=== PATIENT | female | born 1990 | race Hispanic/Latino ===

== ENCOUNTER 2024-10-31 19:27 | Emergency (ER) | payer SELFPAY ==
[~2024-10-31] VITALS: Ht 152.4 cm; Wt 78.9 kg
[2024-10-31 19:28] VITALS: BP 125/75; PULSE 84; RESP 16; TEMP 97.2
--- NOTE | 2024-10-31 19:33 | NUR ---
UA CUP PROVIDED
--- NOTE | 2024-10-31 20:10 | ERN ---
General Chief Complaint: Wound Check Stated Complaint: OPEN WOUND Time Seen by MD: 19:28 Source: patient, family History of Present Illness Initial Comments Patient is a 35-year-old female coming in to be evaluated for right arm lesion. Per patient she had an abscess drained a couple of days ago at another hospital secondary to shooting up heroin. She states that she came in for further evaluation to make sure that the wound was healing well. No increased erythema no drainage noticed. Allergies: Coded Allergies: No Known Allergies (Unverified Allergy, Unknown, 10/31/24) Past Medical History Past Medical History: Asthma Past Surgical History: Female( History) LMP: Sep 12, 2024 ROS Dictation CONSTITUTIONAL: No chills, no fever, no weakness, no diaphoresis, no malaise. HEAD/FACE: No signs of trauma. EENT: No eye pain, no blurred vision, no tearing, no double vision, no ear pain, no ear discharge, no nose pain, no nasal congestion, no throat pain, no throat swelling, no mouth pain. RESPIRATORY: No cough, no orthopnea, no SOB, no stridor, no wheezing. CARDIOVASCULAR: No chest pain, no edema, no palpitations, no syncope. GASTROINTESTINAL/ABDOMINAL: No abdominal pain, no constipation, no diarrhea, no nausea, no vomiting. GENITOURINARY: No abnormal discharge, no dysuria, no frequent urination, no hematuria. No complaints of pain in the genitals. MUSCULOSKELETAL: No back pain, no gout, no joint pain, no joint swelling, no muscle pain, no muscle stiffness, no neck pain. INTEGUMENTARY: No change in color, no change in hair/nails, no dryness, no lesion, no lumps, rash. NEUROLOGICAL/PSYCH: No anxiety, not depressed, no emotional problem, no headache, no numbness, no pre-existing deficit, no history of seizures, no tr emors, no weakness. HEMATOLOGIC/LYMPHATIC: Not anemic, no history of blood clots, no apparent bleeding, no bruising, glands not swollen. All Systems Negative, Except as Noted. Physical Exam Physical Exam Dictation VITAL SIGNS: Reviewed. GENERAL APPEARANCE: Alert, oriented x3, no acute distress, obese. HEAD AND FACE: Non-traumatic. EYES: PERRL, pink conjunctivas, eyelid no trauma, anterior chamber clear. EARS: Pinnas intact and no signs of trauma or erythema. Ear canals clear and no discharge. TMs no erythema. NOSE: No discharge, no bleeding. OROPHARYNX: Mouth normal, teeth no caries, tongue pink. Pharynx clear, no erythema. Tonsils no exudates, no abscesses noted. Mucous membrane moist. NECK: Supple, non-tender, no thyromegaly, no masses, no JVD, no bruits. BREAST: Deferred. CHEST: No tenderness, no crepitus, no paradoxical movement, no retractions. LUNGS: Clear, well-ventilated, symmetric, no rales, no wheezing, no rhonchi, no stridor, good breath sounds bilaterally. HEART: Regular rate, regular rhythm, no murmur, no gallops. VASCULAR: No peripheral edema. ABDOMEN: Soft, positive bowel sounds, nondistended, no guarding, nontender, no rebound, no masses no hepatomegaly, no splenomegaly, no George's sign, no hernias. RECTAL: Deferred. GENITAL: Deferred. NEUROLOGICAL: Normal speech, gross motor function intact, gross sensory function intact. MUSCULOSKELETAL: Neck nontender, full range of motion, back nontender, full range of motion. EXTREMITIES: Nontender, full range of motion. SKIN: Color pink, dry, no turgor, no rash, right arm status post I and D no increased erythema per patient, no purulent drainage LYMPHATICS: Deferred. Results Laboratory and Microbiology Labs Reviewed?: Yes MDM MDM: Differential diagnosis: Wound evaluation, status post I and D, Patient is a 35-year-old female coming in to be evaluated for right arm wound. Per patient she had an abscess formed shortly after using heroin. She was seen at another hospital the abscess was drained and patient came in for further evaluation. There has been no color change which would signify worsening of the lesion per patient was actually getting clear. I advised her to continue taking antibiotics and to follow up with primary care physician as indicated in the past. ED Course Vital Signs Date Time Temp Pulse Resp B/P (MAP) Pulse Ox O2 Delivery O2 Flow Rate FiO2 10/31/24 19:28 97.2 84 16 125/75 99 Room Air DX & DISP Disposition: Discharge Departure Impression: Primary Impression: Encounter for evaluation of wound Condition: Stable Additional Instructions: FOLLOW-UP WITH PRIMARY CARE PROVIDER IN 1 TO 2 DAYS. TAKE MEDICATIONS DIRECT ED HERE IN THE EMERGENCY ROOM. OKAY TO CONTINUE HOME MEDICATIONS UNLESS OTHERWISE DISCUSSED DURING YOUR VISIT IN THE EMERGENCY ROOM TODAY. RETURN TO YOUR NEAREST EMERGENCY ROOM IF SYMPTOMS WORSEN OR IF THERE IS NO IMPROVEMENT. CALL 911 IF YOU NEED IMMEDIATE ASSISTANCE. TAKE TYLENOL [id number] NEEDED AND IF NO CONTRAINDICATIONS ARE PRESENT. INCREASE ORAL HYDRATION. A WOUND CULTURE OR URINE CULTURE WAS ORDERED HERE IN THE EMERGENCY ROOM DEPARTMENT PLEASE FOLLOW-UP WITH PRIMARY CARE PROVIDER AND ADVISE THEM TO GET REPEAT PORTS FROM OUR FACILITY. IF YOU HAD ANY BLANCA WRAP/SPLINTS THAT WERE APPLIED HERE, PLEASE DO NOT REMOVE THEM UNTIL YOU SEE YOUR PRIMARY CARE OR SPECIALTY. Referrals: Referrals: SELF,REFERRAL (PCP) MAAME PIÑA MD Time of Disposition: 20:09 CAS SANDOVAL MD Oct 31, 2024 20:10
--- NOTE | 2024-10-31 20:16 | NUR ---
LEFT WITHOUT DISCHARGE PAPERS
== END 2024-10-31 20:16 | disposition home or self-care (01) ==
LOC: EDH 19:27
DX: S41.101A Unspecified open wound of right upper arm, initial encounter (principal); J45.909 Unspecified asthma, uncomplicated; X58.XXXA Exposure to other specified factors, initial encounter; Y93.89 Activity, other specified; Y92.89 Other specified places as the place of occurrence of the external cause; Y99.8 Other external cause status
CPT/HCPCS: 99282

== ENCOUNTER 2025-03-26 15:33 | Emergency (ER) | payer BC ==
[~2025-03-26] VITALS: Ht 152.4 cm; Wt 72.6 kg
--- NOTE | 2025-03-26 16:51 | NUR ---
PT MOVED TO FAST TRACK ASSUMED CARE AT THIS TIME
--- NOTE | 2025-03-26 17:07 | HMCIMG ---
ULTRASOUND UPPER EXTREMITY SOFT TISSUE LIMITED LEFT INDICATION: Lateral left forearm COMPARISON: None TECHNIQUE: Multiplanar sonographic images of the lateral left forearm were obtained earlier in real-time using grayscale and color Doppler technique, and subsequently made available for review. FINDINGS/IMPRESSION: 3.4 x 0.8 x 4.1 cm aggregate of subcutaneous fat stranding and minimal vascularity, perhaps representing cellulitis, but no evidence for organized/drainable fluid collection.
--- NOTE | 2025-03-26 17:44 | ERN ---
General Chief Complaint: Abscess Stated Complaint: LEFT ARM BOIL Time Seen by MD: 15:41 Source: patient History of Present Illness Initial Comments This is a 34-year-old female coming in to be evaluated for left arm lesion. Patient states that she does has a history of repeated abscesses she states that she started noticing a lesion in her left arm two days ago in his progressively getting worse. No fever no chills. Allergies: Coded Allergies: No Known Allergies (Unverified Allergy, Unknown, 10/31/24) Past Medical History Past Medical History: Asthma Past Surgical History: ROS Dictation CONSTITUTIONAL: No chills, no fever, no weakness, no diaphoresis, no malaise. HEAD/FACE: No signs of trauma. EENT: No eye pain, no blurred vision, no tearing, no double vision, no ear pain, no ear discharge, no nose pain, no nasal congestion, no throat pain, no throat swelling, no mouth pain. RESPIRATORY: No cough, no orthopnea, no SOB, no stridor, no wheezing. CARDIOVASCULAR: No chest pain, no edema, no palpitations, no syncope. GASTROINTESTINAL/ABDOMINAL: No abdominal pain, no constipation, no diarrhea, no nausea, no vomiting. GENITOURINARY: No abnormal discharge, no dysuria, no frequent urination, no hematuria. No complaints of pain in the genitals. MUSCULOSKELETAL: No back pain, no gout, no joint pain, no joint swelling, no muscle pain, no muscle stiffness, no neck pain. INTEGUMENTARY: No change in color, no change in hair/nails, no dryness, lesion, no lumps, no rash. NEUROLOGICAL/PSYCH: No anxiety, not depressed, no emotional problem, no headache, no numbness, no pre-existing deficit, no history of seizures, no tremors, no weakness. HEMATOLOGIC/LYMPHATIC: Not anemic, no history of blood clots, no apparent bleeding, no bruising, glands not swollen. All Systems Negative, Except as Noted. Physical Exam Physical Exam Dictation VITAL SIGNS: Reviewed. GENERAL APPEARANCE: Alert, oriented x3, no acute distress, obese. HEAD AND FACE: Non-traumatic. EYES: PERRL, pink conjunctivas, eyelid no trauma, anterior chamber clear. EARS: Pinnas intact and no signs of trauma or erythema. Ear canals clear and no discharge. TMs no erythema. NOSE: No discharge, no bleeding. OROPHARYNX: Mouth normal, teeth no caries, tongue pink. Pharynx clear, no erythema. Tonsils no exudates, no abscesses noted. Mucous membrane moist. NECK: Supple, non-tender, no thyromegaly, no masses, no JVD, no bruits. BREAST: Deferred. CHEST: No tenderness, no crepitus, no paradoxical movement, no retractions. LUNGS: Clear, well-ventilated, symmetric, no rales, no wheezing, no rhonchi, no stridor, good breath sounds bilaterally. HEART: Regular rate, regular rhythm, no murmur, no gallops. VASCULAR: No peripheral edema. ABDOMEN: Soft, positive bowel sounds, nondistended, no guarding, nontender, no rebound, no masses no hepatomegaly, no splenomegaly, no George's sign, no hernias. RECTAL: Deferred. GENITAL: Deferred. NEUROLOGICAL: Normal speech, gross motor function intact, gross sensory function intact. MUSCULOSKELETAL: Neck nontender, full range of motion, back nontender, full range of motion. EXTREMITIES: Nontender, full range of motion. SKIN: Color pink, dry, no turgor, no rash, no lacerations, left hand forearm erythema rash LYMPHATICS: Deferred. Results Laboratory and Microbiology Labs Reviewed?: Yes EKG/XRAY/US/CT/MRI Ultrasound Comment [place] [address] [address] IMAGING REPORT Signed PATIENT: MELLISA CHAO MR#: [id number] : 1990 SEX: F AGE: 34 LOCATION: [facility] ORDER 36 STATUS: REG REPORT#: [id number] SERVICE 163 REASON: left forearm abscess ORDERING PHYSICIAN: CAS SANDOVAL MD PROCEDURE: SOFT UP EX - US SOFT TISSUE UPPER EXTREMITY ULTRASOUND UPPER EXTREMITY SOFT TISSUE LIMITED LEFT INDICATION: Lateral left forearm COMPARISON: None TECHNIQUE: Multiplanar sonographic images of the lateral left forearm were obtained earlier in real-time using grayscale and color Doppler technique, and subsequently made available for review. FINDINGS/IMPRESSION: 3.4 x 0.8 x 4.1 cm aggregate of subcutaneous fat stranding and minimal vascularity, perhaps representing cellulitis, but no evidence for organized/drainable fluid collection. DICTATED BY: MANJINDER YUNG MD DATE: 03/26/251704 ELECTRONICALLY SIGNED BY: MANJINDER YUNG MD DATE: 03/26/251706 MDM MDM: Differential diagnosis: Left arm abscess, left arm cellulitis Rationale: Tests considered and ordered secondary to shared decision making include: Previous outside records reviewed: Old ER visits. Risk of complication and/or morbidity or mortality of patient management: None Patient is a 34-year-old female coming in to be evaluated in his time discomfort patient states he has been in his in his left arm swelling for an abscess. Ultrasound did not disclose fluid collection. Mild stranding on the superficial was in his noted suggestive of cellulitis. IV clindamycin was to be given but p atient refused. Patient states she would take oral clindamycin. Patient will be discharged with continuing treatment of clindamycin. ED Course Orders Procedure Category Date Status Time Us Soft Tissue Upper US 03/26/25 Resulted Extremity 16:37 Clindamycin Ivpb PHA 03/26/25 Logged 600mg/50ml (Cleocin 18:30 Iv Insertion CPOE 03/26/25 Transmitted 18:13 Current Medications Medications (Trade) Dose Ordered Sig/Arianna Route PRN Reason Start Time Stop Time Status Last Admin Dose Admin Clindamycin HCl/ Dextrose 50 ml @ 100 mls/hr Q8H IV 03/26/25 18:30 04/05/25 18:29 UNV Vital Signs Date Time Temp Pulse Resp B/P (MAP) Pulse Ox O2 Delivery O2 Flow Rate FiO2 03/26/25 15:35 98.1 67 16 110/70 96 Room Air DX & DISP Disposition: Discharge Departure Impression: Primary Impression: Left arm cellulitis Condition: Stable Scripts Clindamycin HCl (Clindamycin HCl) 300 Mg Capsule 1 CAP PO QID for 7 Days, #28 CAP 0 Refills Prov: CAS SANDOVAL MD 03/26/25 Additional Instructions: FOLLOW-UP WITH PRIMARY CARE PROVIDER IN 1 TO 2 DAYS. TAKE MEDICATIONS DIRECTED HERE IN THE EMERGENCY ROOM. OKAY TO CONTINUE HOME MEDICATIONS UNLESS OTHERWISE DISCUSSED DURING YOUR VISIT IN THE EMERGENCY ROOM TODAY. RETURN TO YOUR NEAREST EMERGENCY ROOM IF SYMPTOMS WORSEN OR IF THERE IS NO IMPROVEMENT. CALL 911 IF YOU NEED IMMEDIATE ASSISTANCE. TAKE TYLENOL [id number] NEEDED AND IF NO CONTRAINDICATIONS ARE PRESENT. INCREASE ORAL HYDRATION. A WOUND CULTURE OR URINE CULTURE WAS ORDERED HERE IN THE EMERGENCY ROOM DEPARTMENT PLEASE FOLLOW-UP WITH PRIMARY CARE PROVIDER AND ADVISE THEM TO GET REPEAT PORTS FROM OUR FACILITY. IF YOU HAD ANY BLANCA WRAP/SPLINTS THAT WERE APPLIED HERE, PLEASE DO NOT REMOVE THEM UNTIL YOU SEE YOUR PRIMARY CARE OR SPECIALTY. Referrals: Referrals: SELF,REFERRAL (PCP) MAAME PIÑA MD Time of Disposition: 18:15 CAS SANDOVAL MD March 26, 2025 17:44
[2025-03-26] MEDS ORDERED: CLIN-141 PO (18:16)
[2025-03-26 18:17] VITALS: BP 115/73; PULSE 65; RESP 16; TEMP 98.1; O2SAT 97
[2025-03-26] MEDS: CLINDAMYCIN 150 MG CAP PO ONE (18:23)
[2025-03-26] MEDS ORDERED: CLINDAMYCIN IVPB 600MG/50ML 50 ML IV SCH (18:30)
== END 2025-03-26 18:27 | disposition home or self-care (01) ==
LOC: EDH 15:33
DX: L03.114 Cellulitis of left upper limb (principal); J45.909 Unspecified asthma, uncomplicated; Z98.890 Other specified postprocedural states
CPT/HCPCS: 76882; 99284